=== PATIENT | female | born 1945 | race Caucasian/White ===

== ENCOUNTER 2017-06-27 07:27 | Day surgery (SDC) | payer MEDICARE ==
[~2017-06-27] VITALS: Ht 152.4 cm; Wt 90.7 kg
[~2017-06-27 07:27] MED LIST: ACETAMINOPHEN 325 MG TAB PO PRN; ACETYLCHOLINE OPHTH SOLN 1% 2ML (MIOCHOL-E) As Ordered ONE; BALANCED SALT IRRIGATION SOLUTION 500ML BAG (FOR OR EYE MACHINE) As Ordered ONE; CEFUROXIME 1MG/0.1ML INTRACAMERAL INJ As Ordered ONE; CRAN250C2 PO; CYCL10TA PO; CYCLOPENTOLATE 2% OPHTH SOLN 2ML BTL XX ONE; FENO48TA2 PO; GABA-282 PO; HEALON DUET (HEALON 10MG/ML 0.55ML & HEALON ENDOCOAT 30MG/ML 0.85ML) As Ordered ONE; LIDOCAINE 1% SDV 5 ML VIAL As Ordered ONE; LIDOCAINE 4% INJ 5 ML AMP OU ONE; LORA10CA PO; OFLOXACIN 0.3 % (OCUFLOX) OPTH SOL 5ML XX ONE; PHENYLEPHRINE 2.5% OPHTH SOL 2ML XX ONE; POVIDONE-IODINE 5% OPHTH PREP SOL 30ML As Ordered ONE; PROPARACAINE 0.5% OPHTH SOL 15ML OD PRN; STOO100C PO; TRIA37.5 PO; TROPICAMIDE 1% OPHTH SOLN 2ML XX ONE; VITA1CAP40 PO; VITA1DRO SL
[2017-06-27] MEDS ORDERED: LR 500 ML IV ONE (07:45)
[2017-06-27] MEDS ORDERED: MIDAZOLAM INJ 2 MG/2 ML VIAL (J2250) As Ordered ONE (10:37)
[2017-06-27] MEDS ORDERED: fentaNYL 100 MCG/2 ML INJECTION (J3010) As Ordered ONE (10:37)
[2017-06-27] MEDS ORDERED: KETOROLAC 0.5% OPHTH SOLN OD ONE (11:15)
[2017-06-27] MEDS ORDERED: TRIMETHOBENZAMIDE 300 MG CAP PO PRN (11:15)
[2017-06-27 11:50] VITALS: BP 120/67
--- NOTE | 2017-06-28 11:18 | RO ---
DATE OF PROCEDURE: 06/27/2017 PREPROCEDURE DIAGNOSIS: Age related nuclear cataract, right eye. POSTPROCEDURE DIAGNOSIS: Age related nuclear cataract, right eye. PROCEDURE: Femtosecond cataract extraction with posterior chamber intraocular lens. The lens used was PCB00, 17.5 Diopter. SURGEON: Geneva Sanchez MD UPSET WELDING MACHINE OPERATOR: ANESTHESIA: DESCRIPTION OF PROCEDURE: The patient was brought to the operating room and put under the femtosecond laser. A lid speculum was placed between the lids, and the laser was lowered on. Docking was achieved with good suction. The laser procedure was performed with no difficulty. The laser was then removed from the eye, and the lid speculum was removed. The laser was moved over to the operating microscope and prepped and draped in the usual fashion. A lid speculum was placed between the lids. The eye was fixated. The side port incision was opened up with a spatula. 1% non-preservative lidocaine was instilled; then, viscoelastic was instilled. The main incision was then opened with the spatula. The capsulorrhexis was removed from the eye with the Utrata forceps. The lens was then hydrodissected, and a phacoemulsification unit was used to make a groove in the nucleus and one meridian. The nucleus was cracked into four quadrants, and then each quadrant was removed with the phacoemulsification unit. Any remaining cortex was removed with the irrigation and aspiration (I and A) unit. The capsular bag was refilled with viscoelastic. A posterior chamber intraocular lens was placed in the capsular bag. The remaining viscoelastic was removed. The wound was hydrated. Miochol and cefuroxime were instilled. The wound was watertight. The patient tolerated the procedure well and went to the recovery room in stable condition.
== END 2017-06-27 12:10 | disposition home or self-care (01) ==
LOC: M SDC 07:27
PROVIDERS: ATTEND Ophthalmology
DX: H25.11 Age-related nuclear cataract, right eye (principal); I10 Essential (primary) hypertension; R01.1 Cardiac murmur, unspecified; K52.9 Noninfective gastroenteritis and colitis, unspecified; K57.32 Diverticulitis of large intestine without perforation or abscess without bleeding; M15.0 Primary generalized (osteo)arthritis; R06.83 Snoring; Z88.1 Allergy status to other antibiotic agents; Z88.2 Allergy status to sulfonamides; Z79.899 Other long term (current) drug therapy
CPT/HCPCS: 66984; J2250; J3010; V2632

== ENCOUNTER 2017-07-04 12:01 | Day surgery (SDC) | payer MEDICARE ==
[~2017-07-04] VITALS: Ht 152.4 cm; Wt 90.7 kg
[~2017-07-04 12:01] MED LIST changes: -ACETAMINOPHEN 325 MG TAB PO PRN; -CEFUROXIME 1MG/0.1ML INTRACAMERAL INJ As Ordered ONE; +CYCLOPENTOLATE 2% OPHTH SOLN 2ML BTL OS ONE; -CYCLOPENTOLATE 2% OPHTH SOLN 2ML BTL XX ONE; +LIDOCAINE 3.5 % 1ML OPHTH TOPICAL GEL OU ONE; -LIDOCAINE 4% INJ 5 ML AMP OU ONE; +OFLOXACIN 0.3 % (OCUFLOX) OPTH SOL 5ML OS ONE; -OFLOXACIN 0.3 % (OCUFLOX) OPTH SOL 5ML XX ONE; +PHENYLEPHRINE 2.5% OPHTH SOL 2ML OS ONE; -PHENYLEPHRINE 2.5% OPHTH SOL 2ML XX ONE; -PROPARACAINE 0.5% OPHTH SOL 15ML OD PRN; +TROPICAMIDE 1% OPHTH SOLN 2ML OS ONE; -TROPICAMIDE 1% OPHTH SOLN 2ML XX ONE
[2017-07-04] MEDS ORDERED: NS 1,000 ML IV ONE (12:15)
[2017-07-04] MEDS ORDERED: D5W/0.2% SODIUM CHLORIDE 250 ML IV ONE (12:15)
[2017-07-04] MEDS ORDERED: MIDAZOLAM INJ 2 MG/2 ML VIAL (J2250) As Ordered ONE (12:27)
[2017-07-04] MEDS ORDERED: fentaNYL 100 MCG/2 ML INJECTION (J3010) As Ordered ONE (12:28)
[2017-07-04] MEDS ORDERED: PHENYLEPHRINE 2.5% OPHTH SOL 2ML As Ordered ONE (12:30)
[2017-07-04] MEDS ORDERED: TROPICAMIDE 1% OPHTH SOLN 2ML As Ordered ONE (12:31)
[2017-07-04] MEDS ORDERED: CYCLOPENTOLATE 2% OPHTH SOLN 2ML BTL As Ordered ONE (12:31)
[2017-07-04] MEDS ORDERED: OFLOXACIN 0.3 % (OCUFLOX) OPTH SOL 5ML As Ordered ONE (12:31)
[2017-07-04 14:30] VITALS: BP 131/73
--- NOTE | 2017-07-05 17:06 | RO ---
DATE OF PROCEDURE: 07/04/2017 PREPROCEDURE DIAGNOSIS: Age-related nuclear cataract, left eye. POSTPROCEDURE DIAGNOSIS: Age-related nuclear cataract, left eye. PROCEDURE: Femtosecond cataract extraction with posterior chamber intraocular lens implantation, left eye. The lens used was PCB00, 17.0 diopter. SURGEON: Geneva Sanchez MD SALES ACCOUNT ASSOCIATE: ANESTHESIA: Topical with sedation. DESCRIPTION OF PROCEDURE: The patient was brought to the operating room and put under the femtosecond laser. A lid speculum was placed between the lids, and the laser was lowered on. Docking was achieved with good suction. The laser procedure was performed with no difficulty. The laser was then removed from the eye, and the lid speculum was removed. The laser was moved over to the operating microscope and prepped and draped in the usual fashion. A lid speculum was placed between the lids. The eye was fixated. The side port incision was opened up with a spatula. 1% non-preservative lidocaine was instilled; then, viscoelastic was instilled. The main incision was then opened with the spatula. The capsulorrhexis was removed from the eye with the Utrata forceps. The lens was then hydrodissected, and a phacoemulsification unit was used to make a groove in the nucleus and one meridian. The nucleus was cracked into four quadrants, and then each quadrant was removed with the phacoemulsification unit. Any remaining cortex was removed with the irrigation and aspiration (I and A) unit. The capsular bag was refilled with viscoelastic. A posterior chamber intraocular lens was placed in the capsular bag. The remaining viscoelastic was removed. The wound was hydrated. Miochol and cefuroxime were instilled. The wound was watertight. The patient tolerated the procedure well and went to the recovery room in stable condition.
== END 2017-07-04 14:35 | disposition home or self-care (01) ==
LOC: M SDC 12:01
PROVIDERS: ATTEND Ophthalmology
DX: H25.12 Age-related nuclear cataract, left eye (principal); I10 Essential (primary) hypertension; R01.1 Cardiac murmur, unspecified; E03.9 Hypothyroidism, unspecified; K52.9 Noninfective gastroenteritis and colitis, unspecified; K57.32 Diverticulitis of large intestine without perforation or abscess without bleeding; M12.9 Arthropathy, unspecified; R06.83 Snoring; Z88.1 Allergy status to other antibiotic agents; Z88.2 Allergy status to sulfonamides; Z79.899 Other long term (current) drug therapy; Z90.710 Acquired absence of both cervix and uterus
CPT/HCPCS: 66984; J2250; J3010; V2632

== ENCOUNTER → 2018-09-23 | Outpatient (CLI) | payer MEDICARE | LOC: M RAD 09:58 | DX: M25.561 Pain in right knee (principal); M89.8X7 Other specified disorders of bone, ankle and foot; M25.772 Osteophyte, left ankle; M50.31 Other cervical disc degeneration, high cervical region; M50.321 Other cervical disc degeneration at C4-C5 level; M50.322 Other cervical disc degeneration at C5-C6 level; M17.11 Unilateral primary osteoarthritis, right knee; M25.78 Osteophyte, vertebrae; M51.37 Other intervertebral disc degeneration, lumbosacral region; M43.16 Spondylolisthesis, lumbar region; M47.814 Spondylosis without myelopathy or radiculopathy, thoracic region ==

== ENCOUNTER → 2018-09-23 | Outpatient (CLI) | payer MEDICARE | LOC: M WHC 12:43 | DX: Z12.31 Encounter for screening mammogram for malignant neoplasm of breast (principal); M89.9 Disorder of bone, unspecified; Z13.89 Encounter for screening for other disorder; M81.0 Age-related osteoporosis without current pathological fracture | CPT/HCPCS: 72052 ==

== ENCOUNTER → 2022-11-30 | Outpatient (REF) | payer MEDICARE ==
[~2022-11-30] MED LIST changes: -ACETYLCHOLINE OPHTH SOLN 1% 2ML (MIOCHOL-E) As Ordered ONE; -BALANCED SALT IRRIGATION SOLUTION 500ML BAG (FOR OR EYE MACHINE) As Ordered ONE; +CYCL-707 PO; -CYCL10TA PO; -CYCLOPENTOLATE 2% OPHTH SOLN 2ML BTL OS ONE; -FENO48TA2 PO; +FENO48TA8 PO; -HEALON DUET (HEALON 10MG/ML 0.55ML & HEALON ENDOCOAT 30MG/ML 0.85ML) As Ordered ONE; -LIDOCAINE 1% SDV 5 ML VIAL As Ordered ONE; -LIDOCAINE 3.5 % 1ML OPHTH TOPICAL GEL OU ONE; +MM S100C PO; -OFLOXACIN 0.3 % (OCUFLOX) OPTH SOL 5ML OS ONE; -PHENYLEPHRINE 2.5% OPHTH SOL 2ML OS ONE; -POVIDONE-IODINE 5% OPHTH PREP SOL 30ML As Ordered ONE; -STOO100C PO; -TROPICAMIDE 1% OPHTH SOLN 2ML OS ONE; -VITA1CAP40 PO; +VITA50005 PO
[2022-11-30 17:17] LABS: RHEUMATOID FACTOR QUANT 12.2 IU/ML (<14)
[2022-11-30 17:20] LABS: THYROID PEROXIDASE ANTIBODY < 28.0 U/ML (<60.0)
[2022-12-02 13:08] LABS: ANTI DOUBLE STRAND-DNA AB <1 IU/mL (0-9); ANTINUCLEAR ANTIBODIES DIRECT Positive (Negative); RNP ANTIBODIES <0.2 AI (0.0-0.9); SJOGREN'S ANTI SS-A <0.2 AI (0.0-0.9); SJOGREN'S ANTI SS-B <0.2 AI (0.0-0.9); SMITH ANTIBODIES <0.2 AI (0.0-0.9)
== END ==
LOC: M LAB REF 16:19
PROVIDERS: ATTEND Physician Assistant Medical
DX: R53.83 Other fatigue (principal); R22.1 Localized swelling, mass and lump, neck; M06.9 Rheumatoid arthritis, unspecified

== ENCOUNTER → 2022-12-11 | Outpatient (CLI) | payer MEDICARE | LOC: M RAD 16:03 | PROVIDERS: ATTEND Physician Assistant Medical | DX: R22.1 Localized swelling, mass and lump, neck (principal) ==

== ENCOUNTER → 2022-12-25 | Outpatient (CLI) | payer MEDICARE ==
[~2022-12-25] MED LIST changes: +ISOVUE-370 76% 100ML VIAL As Ordered ONE
== END ==
LOC: M RAD 08:10
PROVIDERS: ATTEND Physician Assistant Medical
DX: R22.1 Localized swelling, mass and lump, neck (principal); E05.00 Thyrotoxicosis with diffuse goiter without thyrotoxic crisis or storm; I72.8 Aneurysm of other specified arteries
CPT/HCPCS: 70491; Q9967

== ENCOUNTER → 2023-01-10 | Outpatient (CLI) | payer MEDICARE ==
[~2023-01-10] MED LIST changes: -ISOVUE-370 76% 100ML VIAL As Ordered ONE
== END ==
LOC: M RAD 15:10
PROVIDERS: ATTEND Physician Assistant Medical
DX: E04.2 Nontoxic multinodular goiter (principal)

== ENCOUNTER → 2023-05-24 | Outpatient (REF) | payer MEDICARE | LOC: M LAB REF 12:01 | PROVIDERS: ATTEND Physician Assistant Medical | DX: R22.1 Localized swelling, mass and lump, neck (principal) ==

== ENCOUNTER → 2024-01-15 | Outpatient (REF) | payer MEDICARE ==
[2024-01-15 16:30] LABS: BASO # 0.1 10^3/uL (0.0-0.2); BASO % 1.3 % (0.0-1.0); EOS # 0.2 10^3/uL (0.0-0.5); EOS % 2.7 % (0.0-3.0); HEMATOCRIT 42.2 % (36.0-47.0); HEMOGLOBIN 13.8 g/dl (12.0-15.5); LYMPH % 28.5 % (24.0-44.0); MEAN CORPUSCULAR HEMOGLOBIN 28.3 pg (27.0-33.0); MEAN CORPUSCULAR HGB CONC 32.7 g/dl (32.0-36.5); MEAN CORPUSCULAR VOLUME 86.5 fl (80.0-96.0); MONO # 0.5 10^3/uL (0.0-0.8); NEUTROPHILS # 4.2 10^3/uL (1.5-8.5); NEUTROPHILS % 60.2 % (36.0-66.0); PLATELET COUNT, AUTOMATED 195 10^3/uL (150-450); RED BLOOD COUNT 4.88 10^6/uL (4.00-5.40)
[2024-01-15 16:36] LABS: APPEARANCE, URINE CLEAR (CLEAR); BACTERIA, URINE AUTO NEGATIVE (NEGATIVE); BILIRUBIN, URINE AUTO NEGATIVE (NEGATIVE); BLOOD, URINE BLOOD NEGATIVE (NEGATIVE); COLOR, URINE YELLOW (YELLOW); GLUCOSE, URINE (UA) AUTO NEGATIVE (NEGATIVE); KETONE, URINE AUTO NEGATIVE (NEGATIVE); LEUKOCYTE ESTERASE, URINE AUTO NEGATIVE (NEGATIVE); NITRITE, URINE AUTO NEGATIVE (NEGATIVE); PROTEIN, URINE AUTO NEGATIVE (NEGATIVE); RBC, URINE AUTO 0 /HPF (0-3); SPECIFIC GRAVITY URINE AUTO 1.011 (1.002-1.035); SQUAMOUS EPITHELIAL CELL UR AU 0 /HPF (0-6); UROBILINOGEN, URINE AUTO 0.2 mg/dL (0.0-2.0); WBC, URINE AUTO 1 /HPF (0-3)
[2024-01-15 16:40] LABS: ERYTHROCYTE SEDIMENTATION RATE 28 mm/hr (0-30)
[2024-01-15 16:57] LABS: CREATININE,RANDOM URINE 65.1 MG/DL
[2024-01-15 16:58] LABS: ALBUMIN 3.8 G/DL (3.2-5.2); ALKALINE PHOSPHATASE 41 U/L (46-116); ALT/SGPT 17 U/L (7.0-40); AST/SGOT 16 U/L (<34); BILIRUBIN,TOTAL 0.6 MG/DL (0.3-1.2); BLOOD UREA NITROGEN 10 MG/DL (9-23); CALCIUM LEVEL 9.1 MG/DL (8.3-10.6); CARBON DIOXIDE LEVEL 27 MMOL/L (20-31); CHLORIDE LEVEL 104 MMOL/L (98-107); COMPLEMENT C3 142.4 MG/DL (90.0-170.0); CREATININE FOR GFR 0.41 MG/DL (0.55-1.30); GLOMERULAR FILTRATION RATE > 60.0 (>39); GLUCOSE, FASTING 84 MG/DL (74-106); IMMUNOGLOBULIN A 166.3 MG/DL (40-350); IMMUNOGLOBULIN G 1007 MG/DL (650-1600); POTASSIUM SERUM 3.8 MMOL/L (3.5-5.1); SODIUM LEVEL 138 MMOL/L (136-145); TOTAL PROTEIN 6.8 G/DL (5.7-8.2); TOTAL PROTEIN,RANDOM URINE < 6.0 MG/DL (0.0-14.0)
[2024-01-15 16:59] LABS: COMPLEMENT C4 23.6 MG/DL (12-36)
[2024-01-15 17:00] LABS: TOTAL 25(OH) VITAMIN D 80.5 NG/ML (20.0-100.0)
[2024-01-15 17:39] LABS: HEPATITIS B CORE ANTIBODY IGM NEGATIVE (NEGATIVE); HEPATITIS C VIRUS ABY INDEX < 0.02 INDEX (<0.8)
[2024-01-21 10:07] LABS: ANGIOTENSIN 1 CONVERTING ENZYM 48 U/L (14-82); COMPLEMENT TOTAL (CH50) > 60 U/mL (>41); VITAMIN D 1,25 DIHYDROXY 74.2 pg/mL (24.8-81.5)
== END ==
LOC: M SFHCRHEU 13:57
PROVIDERS: ATTEND Internal Medicine Rheumatology
DX: Z01.89 Encounter for other specified special examinations (principal); R76.8 Other specified abnormal immunological findings in serum; M35.3 Polymyalgia rheumatica; M35.00 Sjogren syndrome, unspecified; I73.00 Raynaud's syndrome without gangrene; Z79.899 Other long term (current) drug therapy

== ENCOUNTER → 2024-03-29 | Outpatient (CLI) | payer MEDICARE | LOC: M RAD 12:33 | PROVIDERS: ATTEND Internal Medicine Rheumatology | DX: M35.00 Sjogren syndrome, unspecified (principal); R76.8 Other specified abnormal immunological findings in serum; M35.3 Polymyalgia rheumatica; M77.31 Calcaneal spur, right foot; M77.32 Calcaneal spur, left foot; M19.041 Primary osteoarthritis, right hand; M19.042 Primary osteoarthritis, left hand ==

== ENCOUNTER → 2024-04-15 | Outpatient (CLI) | payer MEDICARE | LOC: M RAD 08:42 | PROVIDERS: ATTEND Internal Medicine Rheumatology | DX: Z01.89 Encounter for other specified special examinations (principal); R76.8 Other specified abnormal immunological findings in serum; M35.3 Polymyalgia rheumatica; M35.00 Sjogren syndrome, unspecified; I73.00 Raynaud's syndrome without gangrene ==

== ENCOUNTER → 2024-04-19 | Outpatient (CLI) | payer MEDICARE | LOC: M RAD 10:28 | PROVIDERS: ATTEND Internal Medicine | DX: M54.40 Lumbago with sciatica, unspecified side (principal); M51.36 Other intervertebral disc degeneration, lumbar region; M48.061 Spinal stenosis, lumbar region without neurogenic claudication ==

== ENCOUNTER → 2024-05-16 | Outpatient (CLI) | payer MEDICARE | LOC: M SLEEP 20:00 | PROVIDERS: ATTEND Nurse Practitioner Adult Health | DX: G47.33 Obstructive sleep apnea (adult) (pediatric) (principal) ==

== ENCOUNTER → 2024-05-19 | Outpatient (CLI) | payer MEDICARE | LOC: M CARPUL 14:21 | PROVIDERS: ATTEND Internal Medicine Rheumatology | DX: R76.8 Other specified abnormal immunological findings in serum (principal); M35.3 Polymyalgia rheumatica; M35.00 Sjogren syndrome, unspecified; I73.00 Raynaud's syndrome without gangrene ==

== ENCOUNTER → 2024-08-04 | Outpatient (CLI) | payer MEDICARE ==
[~2024-08-04] MED LIST changes: +ISOVUE-370 76% 100ML VIAL ONE
== END ==
LOC: M PLAIMG 13:32
PROVIDERS: ATTEND Internal Medicine
DX: I72.8 Aneurysm of other specified arteries (principal); E07.9 Disorder of thyroid, unspecified
CPT/HCPCS: 70491; Q9967

== ENCOUNTER → 2024-10-27 | Outpatient (CLI) | payer MEDICARE ==
[~2024-10-27] MED LIST changes: +GABA-1172 PO; -GABA-282 PO; -ISOVUE-370 76% 100ML VIAL ONE
== END ==
LOC: M WHC 12:34
PROVIDERS: ATTEND Otolaryngology
DX: E04.2 Nontoxic multinodular goiter (principal)

== ENCOUNTER → 2024-12-15 | Outpatient (REF) | payer MEDICARE | LOC: M LAB REF 16:02 | PROVIDERS: ATTEND Internal Medicine | DX: R53.83 Other fatigue (principal) ==

== ENCOUNTER → 2025-03-10 | Outpatient (REF) | payer MEDICARE | LOC: M LAB REF 12:02 | PROVIDERS: ATTEND Internal Medicine | DX: D64.9 Anemia, unspecified (principal); R53.83 Other fatigue ==

== ENCOUNTER → 2025-07-24 | Outpatient (REF) | payer MEDICARE | LOC: M LAB REF 13:53 | PROVIDERS: ATTEND Internal Medicine | DX: L03.115 Cellulitis of right lower limb (principal) ==